=== PATIENT | female | born 1990 | race Caucasian/White ===

== ENCOUNTER 2018-08-04 01:26 | Emergency (ER) | payer BC, OTHER ==
[~2018-08-04] VITALS: Ht 165.1 cm; Wt 76.2 kg
[~2018-08-04 01:26] MED LIST: CYCLOBENZAPRINE10 MG ORAL; IBUPROFEN600 MG ORAL; NITROFURANTOIN100 M2 ORAL; NKM; NORCO 5-325 TA1 EAC1 ORAL
[2018-08-04] MEDS ORDERED: Morphine Sulfate 4mg/ml Inj (IV USE ONLY) IVP ONE (01:45)
--- NOTE | 2018-08-04 01:50 | NUR ---
ED Nurse Note: Pt arrived ED from home, c/o possible Ectopic pregnat for six weeks. Pt is A/O X4. c/o back pain 10/30. Vital signs stable at this time, waiting for orders.
--- NOTE | 2018-08-04 02:15 | NUR ---
ED Nurse Note: Blood sample collected and sent to Lab.
--- NOTE | 2018-08-04 02:18 | NUR ---
ED Nurse Note: Pt was sent down for abdminal U/S.
[2018-08-04 02:26] LABS: EOSINOPHILS % (AUTO) 2.5 % (0.0-3.0); HEMATOCRIT 41.6 % (37.0-47.0); HEMOGLOBIN 14.3 G/DL (12.0-16.0); LYMPHOCYTES % (AUTO) 33.5 % (20.0-45.0); MEAN CORPUSCULAR VOLUME 91 FL (80-99); MONOCYTES % (AUTO) 7.7 % (1.0-10.0); NEUTROPHILS % (AUTO) 55.3 % (45.0-75.0); PLATELET COUNT 154 K/UL (150-450); RED BLOOD COUNT 4.56 M/UL (4.20-5.40); RED CELL DISTRIBUTION WIDTH 11.4 % (11.6-14.8); WHITE BLOOD COUNT 6.1 K/UL (4.8-10.8)
[2018-08-04 02:31] VITALS: BP 106/63
[2018-08-04 02:37] LABS: ANION GAP 8 mmol/L (5-15); BLOOD UREA NITROGEN 11 mg/dL (7-18); CALCIUM 9.1 MG/DL (8.5-10.1); CARBON DIOXIDE 29 MMOL/L (21-32); CHLORIDE 102 MMOL/L (98-107); CREATININE 0.6 MG/DL (0.55-1.30); POTASSIUM 4.1 MMOL/L (3.5-5.1); SODIUM 139 MMOL/L (136-145)
[2018-08-04 02:39] LABS: INR 1.1 (0.9-1.1)
[2018-08-04 02:41] LABS: ALANINE AMINOTRANSFERASE 18 U/L (12-78); ALBUMIN 3.8 G/DL (3.4-5.0); ALBUMIN/GLOBULIN RATIO 1.2 (1.0-2.7); ALKALINE PHOSPHATASE 78 U/L (46-116); ASPARTATE AMINO TRANSFERASE 12 U/L (15-37); BILIRUBIN,TOTAL 0.4 MG/DL (0.2-1.0)
--- NOTE | 2018-08-04 03:30 | NUR ---
ED Nurse Note: Dr. Wills has spoke to Dr. Cruz, , Row Boss of [facility] regarding pt's condition.
--- NOTE | 2018-08-04 03:34 | Diagnostic Imaging Report ---
EXAM: US Pelvis Complete, Transabdominal. US Pelvis, Transvaginal. CLINICAL HISTORY: ABD PAIN TECHNIQUE: Real-time transabdominal and transvaginal pelvic ultrasound (complete) with image documentation. Transvaginal imaging was used for better evaluation of the endometrium and adnexa. COMPARISON: No relevant prior studies available. FINDINGS: Endometrium: No intrauterine gestation is identified. The endometrium is homogeneous and measures up to 8 mm in thickness. Uterus/cervix: Unremarkable. No myometrial mass. Right ovary: The right ovary measures 2.8 x 2.3 x 2.5 cm. There is a mildly complex right ovarian cystic lesion measuring up to 19 mm in diameter. Normal right ovarian blood flow. Left ovary: The left ovary measures 2.2 x 2.9 x 1.9 cm. Probable corpus luteum cyst seen within the left ovary measuring up to 1.6 cm in diameter. Adjacent to the left ovary is an indistinct, nonvascular soft tissue mass or blood clot, measuring up to 4.2 x 2.5 x 4.6 cm. Free fluid: No free fluid. IMPRESSION: Indistinct soft tissue mass or blood clot within the left adnexum, adjacent to the left ovary, could be associated with suspected ectopic . No free fluid is identified. Probable right ovarian hemorrhagic cyst measuring up to 19 mm in diameter. Normal bilateral ovarian blood flow. The uterus is unremarkable. No intrauterine gestation.
--- NOTE | 2018-08-04 04:15 | NUR ---
ED Nurse Note: copies of Lab result and U/s report given to Pt.
[2018-08-04 04:16] VITALS: BP 115/62
--- NOTE | 2018-08-04 04:16 | NUR ---
ER DISCHARGE NOTE: Patient is cleared to be discharged per Dr. Wills. Pt will be d/c to home now and be admited to [facility] according to Pt's [place] HANSEN, Dr Cruz's advice. Pt is aox4 on room air with stable vital signs. Pt was given dc and prescription instructions and was able to verbalize understanding. Pt's IV and ID band removed. Pt is able to ambulate with steady gait and took all belongings. Acompanied by her family.
--- NOTE | 2018-08-04 04:41 | Emergency Room Report ---
History of Present Illness General Chief Complaint: General Complaint Source: Patient, Family Member Present Illness HPI 28-year-old female presents ED for evaluation. Patient is complaining of back pain which started tonight. Dull, 7 out of 10, nonradiating. States that she was seen by her ASSISTED LIVING CARE MANAGER on Sunday and was noted to have an ectopic on the left. Was given methotrexate. Patient denies any vaginal bleeding or discharge at this time. States back in March she also had an ectopic and was given methotrexate but states that she did not develop this pain at that time. Denies dysuria or hematuria. No other aggravating relieving factors. Denies any other associated symptoms Allergies: Coded Allergies: No Known Allergies (Unverified , 01/31/16) Patient History Past Medical History: none Past Surgical History: none Pertinent Family History: none Social History: Denies: smoking, alcohol use, drug use Last Menstrual Period: Unknown Now: Yes - Six weeks methrotrexate given Immunizations: UTD Reviewed Nursing Documentation: PMH: Agreed; PSxH: Agreed Nursing Documentation-PMH Past Medical History Deferred: Patient Unconscious Review of Systems All Other Systems: negative except mentioned in HPI Physical Exam Vital Signs Date Time Temp Pulse Resp B/P (MAP) Pulse Ox O2 Delivery O2 Flow Rate FiO2 08/04/18 01:31 98.2 69 16 102/67 99 Room Air Sp02 EP Interpretation: reviewed, normal General Appearance: no apparent distress, alert, GCS 15, non-toxic Head: normocephalic, atraumatic Eyes: bilateral eye normal inspection, bilateral eye PERRL ENT: hearing grossly normal, normal pharynx, no angioedema, normal voice Neck: full range of motion, supple/symm/no masses Respiratory: chest non-tender, lungs clear, normal breath sounds, speaking full sentences Cardiovascular #1: regular rate, rhythm, no edema Cardiovascular #2: 2+ carotid (R), 2+ carotid (L), 2+ radial (R), 2+ radial (L) , 2+ dorsalis pedis (R), 2+ dorsalis pedis (L) Gastrointestinal: normal bowel sounds, non tender, soft, non-distended, no guarding, no rebound Rectal: deferred Genitourinary: normal inspection, no CVA tenderness Musculoskeletal: back normal, gait/station normal, normal range of motion, non- tender Neurologic: alert, oriented x3, responsive, motor strength/tone normal, sensory intact, speech normal Psychiatric: judgement/insight normal, memory normal, mood/affect normal, no suicidal/homicidal ideation Reflexes: 3+ bicep (R), 3+ bicep (L), 3+ tricep (R), 3+ tricep (L), 3+ knee (R) , 3+ knee (L) Skin: normal color, no rash, warm/dry, well hydrated Lymphatic: no adenopathy Medical Decision Making Diagnostic Impression: Primary Impression: Ectopic Qualified Codes: O00.90 - Unspecified ectopic without intrauterine ER Course Hospital Course 28 yo F presents to ED with back pain. given methotrexate for ectopic pregancy Differential diagnoses include: gastrits, gastroenterits, ectopic , ovarian torsion/cyst, UTI Clinical course Patient placed on stretcher in ED. After initial history and physical I ordered labs, IV fluids and pain meds and US Labs-no leukocytosis, electrolytes okay, beta hCG 2180, hb/hct stable OB US - Left ovary: The left ovary measures 2.2 x 2.9 x 1.9 cm. Probable corpus luteum cyst seen within the left ovary measuring up to 1.6 cm in diameter. Adjacent to the left ovary is an indistinct, nonvascular soft tissue mass or blood clot, measuring up to 4.2 x 2.5 x 4.6 cm. Free fluid: No free fluid. I discussed findings with patient's ASSISTED LIVING CARE MANAGER Dr cruz. States that he reviewed records from Sunday and ectopic appears slightly larger but there is no rupture or hemorrhage. Beta quantitative went up a little, which is expected after given methotrexate Patient has stable vitals with soft abdomen and nontoxic-appearing. No emergent indication for surgery. Discussed option for transfer to [facility] where he has privileges but patient stated that she will prefer to go home at this time. Patient will return to [facility] during the day for a repeat ultrasound Patient given copies of labs, ultrasound report. Diagnosis - ectopic Stable and discharged to home. Followup with PMD/ASSISTED LIVING CARE MANAGER. Return to ED if symptoms recur or worsen Labs Test 08/04/18 02:15 White Blood Count 6.1 K/UL (4.8-10.8) Red Blood Count 4.56 M/UL (4.20-5.40) Hemoglobin 14.3 G/DL (12.0-16.0) Hematocrit 41.6 % (37.0-47.0) Mean Corpuscular Volume 91 FL (80-99) Mean Corpuscular Hemoglobin 31.3 PG (27.0-31.0) Mean Corpuscular Hemoglobin Concent 34.4 G/DL (32.0-36.0) Red Cell Distribution Width 11.4 % (11.6-14.8) Platelet Count 154 K/UL (150-450) Mean Platelet Volume 9.7 FL (6.5-10.1) Neutrophils (%) (Auto) 55.3 % (45.0-75.0) Lymphocytes (%) (Auto) 33.5 % (20.0-45.0) Monocytes (%) (Auto) 7.7 % (1.0-10.0) Eosinophils (%) (Auto) 2.5 % (0.0-3.0) Basophils (%) (Auto) 1.0 % (0.0-2.0) Prothrombin Time 11.9 SEC (9.30-11.50) Prothromb Time International Ratio 1.1 (0.9-1.1) Activated Partial Thromboplast Time 28 SEC (23-33) Sodium Level 139 MMOL/L (136-145) Potassium Level 4.1 MMOL/L (3.5-5.1) Chloride Level 102 MMOL/L (98-107) Carbon Dioxide Level 29 MMOL/L (21-32) Anion Gap 8 mmol/L (5-15) Blood Urea Nitrogen 11 mg/dL (7-18) Creatinine 0.6 MG/DL (0.55-1.30) Estimat Glomerular Filtration Rate > 60 mL/min (>60) Glucose Level 90 MG/DL (74-106) Calcium Level 9.1 MG/DL (8.5-10.1) Total Bilirubin 0.4 MG/DL (0.2-1.0) Aspartate Amino Transf (AST/SGOT) 12 U/L (15-37) Alanine Aminotransferase (ALT/SGPT) 18 U/L (12-78) Alkaline Phosphatase 78 U/L (46-116) Total Protein 7.1 G/DL (6.4-8.2) Albumin 3.8 G/DL (3.4-5.0) Globulin 3.3 g/dL Albumin/Globulin Ratio 1.2 (1.0-2.7) Lipase 100 U/L (73-393) Human Chorionic Gonadotropin, Quant 2180 mIU/mL (1-6) CT/MRI/US Diagnostic Results CT/MRI/US Diagnostic Results : Imaging Test Ordered: OB US Impression Endometrium: No intrauterine gestation is identified. The endometrium is homogeneous and measures up to 8 mm in thickness. Uterus/cervix: Unremarkable. No myometrial mass. Right ovary: The right ovary measures 2.8 x 2.3 x 2.5 cm. There is a mildly complex right ovarian cystic lesion measuring up to 19 mm in diameter. Normal right ovarian blood flow. Left ovary: The left ovary measures 2.2 x 2.9 x 1.9 cm. Probable corpus luteum cyst seen within the left ovary measuring up to 1.6 cm in diameter. Adjacent to the left ovary is an indistinct, nonvascular soft tissue mass or blood clot, measuring up to 4.2 x 2.5 x 4.6 cm. Free fluid: No free fluid. Last Vital Signs Date Time Temp Pulse Resp B/P (MAP) Pulse Ox O2 Delivery O2 Flow Rate FiO2 08/04/18 04:16 98.2 68 16 115/62 99 Room Air Status: improved Disposition: HOME, SELF-CARE Condition: Stable Patient Instructions: Methotrexate Treatment for an Ectopic , Care After Additional Instructions: followup with your OBGYN Dr Cruz and Dr Hawkins. Return to [facility] this morning for a repeat Ultrasound Jong Wills MD Aug 04, 2018 04:41
== END 2018-08-04 04:16 | disposition home or self-care (01) ==
LOC: EMR 01:40
DX: O00.90 Unspecified ectopic pregnancy without intrauterine pregnancy (principal); O34.80 Maternal care for other abnormalities of pelvic organs, unspecified trimester; N83.201 Unspecified ovarian cyst, right side; Z3A.00 Weeks of gestation of pregnancy not specified
CPT/HCPCS: 36415; 76801; 76830; 80053; 83690; 84702; 85025; 85610; 85730; 86850; 86900; 86901; 96374; 99284; J2270

== ENCOUNTER 2019-05-29 18:15 | Emergency (ER) | payer BC ==
[~2019-05-29] VITALS: Ht 165.1 cm; Wt 84.8 kg
[2019-05-29 18:25] VITALS: BP 110/64
[2019-05-29 19:30] LABS: EOSINOPHILS % (AUTO) 0.1 % (0.0-3.0); HEMOGLOBIN 13.6 G/DL (12.0-16.0); LYMPHOCYTES % (AUTO) 6.3 % (20.0-45.0); MEAN CORPUSCULAR VOLUME 95 FL (80-99); MONOCYTES % (AUTO) 4.4 % (1.0-10.0); PLATELET COUNT 140 K/UL (150-450); RED BLOOD COUNT 4.21 M/UL (4.20-5.40); RED CELL DISTRIBUTION WIDTH 11.9 % (11.6-14.8); WHITE BLOOD COUNT 13.6 K/UL (4.8-10.8)
[2019-05-29 19:31] LABS: BASOPHILS % (AUTO) 0.3 % (0.0-2.0)
[2019-05-29 19:34] LABS: ANION GAP 12 mmol/L (5-15); BLOOD UREA NITROGEN 6 mg/dL (7-18); CALCIUM 9.1 MG/DL (8.5-10.1); CARBON DIOXIDE 23 MMOL/L (21-32); CHLORIDE 101 MMOL/L (98-107); CREATININE 0.5 MG/DL (0.55-1.30); POTASSIUM 3.9 MMOL/L (3.5-5.1); SODIUM 136 MMOL/L (136-145)
[2019-05-29 19:39] LABS: ALANINE AMINOTRANSFERASE 17 U/L (12-78); ALBUMIN 3.3 G/DL (3.4-5.0); ALBUMIN/GLOBULIN RATIO 0.9 (1.0-2.7); ALKALINE PHOSPHATASE 53 U/L (46-116); ASPARTATE AMINO TRANSFERASE 15 U/L (15-37); BILIRUBIN,TOTAL 0.6 MG/DL (0.2-1.0)
--- NOTE | 2019-05-29 20:05 | Diagnostic Imaging Report ---
Indication: Pelvic pain. 29-year-old female Technique: Grayscale and duplex Doppler imaging of the pelvis performed utilizing a transabdominal scan and endovaginal scan. Comparison: None Findings: Viable single IUP gestational age estimated at 19 weeks 4 days demonstrated. heart tones and active movement demonstrated. lie is currently transverse. Amniotic fluid appears appropriate. PUSHPA is 4.5 cm. anatomy is not assessed. The cervix is closed and measures 4.8 cm. There is no placenta previa. The placenta is fundal in location. measurements are as follows: Biparietal diameter 4.5 cm, 19 weeks 4 days. Head circumference 16.9 cm, 19 weeks 4 days. Abdominal circumference 15.3 cm, 20 weeks 4 days. Femur length 2.8 cm, 18 weeks 4 days. Estimated weight 303 g +/- 40 5 g. IMPRESSION: Single viable intrauterine gestational age estimated at 19 weeks 4 days. Note: A negative ultrasound evaluation does not insure well-being or positive outcome for the . monitoring including a nonstress test may be needed and clinical evaluation by ARCHITECTURAL PROJECT CAPTAIN is highly recommended.
[2019-05-29 20:45] LABS: BILIRUBIN, URINE NEGATIVE (NEGATIVE); COLOR,URINE PALE YELLOW; GLUCOSE, URINE (UA) NEGATIVE (NEGATIVE); KETONES,URINE 2+ (NEGATIVE); LEUKOCYTE ESTERASE ,URINE NEGATIVE (NEGATIVE); NITRITE,URINE NEGATIVE (NEGATIVE); PH,URINE 8 (4.5-8.0); PROTEIN,URINE NEGATIVE (NEGATIVE); UROBILINOGEN,URINE NORMAL MG/DL (0.0-1.0)
[2019-05-29 20:47] LABS: APPEARANCE,URINE CLEAR
--- NOTE | 2019-05-29 21:25 | Emergency Room Report ---
History of Present Illness General Chief Complaint: Headache Source: Patient Present Illness HPI 29-year-old female who is G5, and with history of 2 ectopic pregnancies one at 6 weeks and the other as 5 weeks and 1 miscarriage at 9 weeks here complaining of 10 out of 10 headache, fever and chills x1 day. Denies cough and congestion, denies abdominal pain, denies nausea vomiting. Denies any vaginal bleeding or spotting. Denies urinary frequency and urgency. Is compliant with her AMMONIA TECHNICIAN visits and last saw her AMMONIA TECHNICIAN 1 week ago. Denies any recent travel. Reports that she took Tylenol prior to coming here still feels no relief. Has not taken any medication for symptom relief. Denies dizziness, syncope, chest pain, shortness of breath, palpitation. Allergies: Coded Allergies: No Known Allergies (Unverified , 01/31/16) Patient History Past Medical History: see triage record Past Surgical History: none Pertinent Family History: none Now: Yes : 5 Para: 1 Immunizations: UTD Reviewed Nursing Documentation: PMH: Agreed; PSxH: Agreed Nursing Documentation-PMH Past Medical History: No History, Except For Review of Systems All Other Systems: negative except mentioned in HPI Physical Exam Vital Signs Date Time Temp Pulse Resp B/P (MAP) Pulse Ox O2 Delivery O2 Flow Rate FiO2 05/29/19 18:19 101.5 116 17 106/64 (78) 98 Room Air Sp02 EP Interpretation: abnormal - Temperature 101 F Head: normocephalic, atraumatic Eyes: bilateral eye normal inspection, bilateral eye PERRL ENT: hearing grossly normal, normal pharynx, no angioedema, normal voice Neck: full range of motion, supple, thyroid normal, no meningismus, no bony tend, supple/symm/no masses Respiratory: chest non-tender, lungs clear, normal breath sounds, no rhonchi, no respiratory distress, no wheezing, speaking full sentences Cardiovascular #1: regular rate, rhythm, no edema, no murmur, normal capillary refill Cardiovascular #2: 2+ carotid (R), 2+ carotid (L), 2+ radial (R), 2+ radial (L) , 2+ dorsalis pedis (R), 2+ dorsalis pedis (L) Gastrointestinal: non tender, soft, no organomegaly, no peritonitis, other - gravid Rectal: deferred Genitourinary: no CVA tenderness Musculoskeletal: back normal, no calf tenderness, Mary's Sign negative Neurologic: alert, motor strength/tone normal, oriented x3, sensory intact, responsive, speech normal Psychiatric: judgement/insight normal, memory normal, mood/affect normal, no suicidal/homicidal ideation Skin: no rash, palpation normal, normal color, normal inspection Lymphatic: no adenopathy Medical Decision Making PA Attestation All my diagnosis and treatment plans were reviewed ad discussed with my supervising physician Dr. Napoles Diagnostic Impression: Primary Impression: Upper respiratory infection Additional Impressions: Fever, intermittent Headache ER Course 29-year-old female who is G5, and with history of 2 ectopic pregnancies one at 6 weeks and the other as 5 weeks and 1 miscarriage at 9 weeks here complaining of 10 out of 10 headache, fever and chills x1 day. Denies cough and congestion, denies abdominal pain, denies nausea vomiting. Denies any vaginal bleeding or spotting. Denies urinary frequency and urgency. Is compliant with her AMMONIA TECHNICIAN visits and last saw her AMMONIA TECHNICIAN 1 week ago. Denies any recent travel. Reports that she took Tylenol prior to coming here still feels no relief. Has not taken any medication for symptom relief. Denies dizziness, syncope, chest pain, shortness of breath, palpitation. Ddx considered but are not limited to: Preeclampsia, abdominal pain during , infection during , flu, URI Vital signs: are WNL, pt. is febrile H&PE are most consistent with: ORDERS: OB ultrasound, CBC, CMP, UA, type and screen, beta hCG, influenza swab, chest x-ray with patient permission and consent, ED INTERVENTIONS: NS bolus, Tylenol DISCHARGE: At this time pt. is stable for d/c to home. Will provide printed patient care instructions, and any necessary prescriptions. Care plan and follow up instructions have been discussed with the patient prior to discharge. Chest X-Ray Diagnostic Results Chest X-Ray Diagnostic Results : Chest X-Ray Ordered: Yes # of Views/Limited/Complete: 1 View Indication: Other - fever EP Interpretation: Yes PA Xray: Interpretation reviewed, by supervising MD, and agrees with findings. Interpretation: no consolidation, no effusion, no pneumothorax Impression: No acute disease Electronically Signed by: Edelmira CASTAÑEDA Scribe Text FILM CXR 1 VIEW: No consolidation, interstitial edema, pleural effusion, or pneumothorax. Heart size is normal. No fracture. CT/MRI/US Diagnostic Results CT/MRI/US Diagnostic Results : Imaging Test Ordered: OB US Impression US OB 1st TRIMESTER: Single living intrauterine with an estimated gestational age of 19 weeks and 4 days. heart tones of 163 bpm. Currently transverse lie. The cervix is long and closed. Unremarkable appearance of the placenta. Last Vital Signs Date Time Temp Pulse Resp B/P (MAP) Pulse Ox O2 Delivery O2 Flow Rate FiO2 05/29/19 20:04 101.5 05/29/19 18:25 109 17 110/64 98 Room Air Status: improved Disposition: HOME, SELF-CARE Condition: Stable Referrals: NON PHYSICIAN (PCP) Patient Instructions: Fever, Adult, General Headache Without Cause, Upper Respiratory Infection, Adult Additional Instructions: Take medication as directed, follow-up with your primary care doctor, increase oral hydration, if worsening symptoms, abdominal pain cramping, vaginal bleeding or spotting return to the emergency room Edelmira Shafer May 29, 2019 21:25
--- NOTE | 2019-05-29 21:27 | Diagnostic Imaging Report ---
Indication: Dyspnea Comparison: None A single view chest radiograph was obtained. Findings: Groundglass opacification demonstrated within the right lung versus soft tissue attenuation. Suggest repeating the study. Heart appears normal in size. IMPRESSION: Suspect artifact accounting for increased density in the right lung. Suggest repeat
[2019-05-29] MEDS ORDERED: TYLENOL EXTRA500 MG ORAL (21:32)
[2019-05-29 21:40] VITALS: BP 110/64
== END 2019-05-29 21:45 | disposition home or self-care (01) ==
LOC: EMR 18:35
DX: O98.812 Other maternal infectious and parasitic diseases complicating pregnancy, second trimester (principal); J06.9 Acute upper respiratory infection, unspecified; R50.9 Fever, unspecified; R51 Headache; Z3A.19 19 weeks gestation of pregnancy
CPT/HCPCS: 36415; 71045; 76811; 80053; 81003; 84702; 85025; 86710; 86850; 86900; 86901; 96360; 99284; J7030